=== PATIENT | male | born 1950 | race Caucasian/White ===

== ENCOUNTER 2023-01-29 21:19 | Emergency (ER) | payer MEDICARE, SELFPAY ==
[2023-01-29 21:30] VITALS: BP 158/83; PULSE 78; RESP 14; TEMP 36.6; O2SAT 97; BMI 33.2
--- NOTE | 2023-01-29 21:55 | ED_ITS ---
HPI - Extremity Injury (Lower) General Chief Complaint: Extremity Injury, Lower Stated Complaint: R leg swelling Time Seen by Provider: 01/29/23 21:43 Source: patient Mode of arrival: Ambulatory History of Present Illness HPI Narrative: 72-year-old nonsmoker with noncontributory medical history presents with his for evaluation of swelling of his right lower extremity. He states he had a ground level fall a few days ago when which he fell forward onto his right knee and developed a rather impressive hematoma below his knee which has since resolved. In the aftermath he is developed swelling of his right lower extremity with some discoloration adjacent to his lateral ankle. He denies any hip, knee or ankle pain. 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 He denies any chest pain or shortness of breath. He has no systemic complaints such as fever, chills nor nausea or vomiting. He is here for evaluation of possible DVT Related Data Allergies Allergy/AdvReac Type Severity Reaction Status Date / Time Sulfa (Sulfonamide Allergy Rash Verified 01/29/23 21:30 Antibiotics) Review of Systems Review of Systems Narrative: GENERAL: Denies chills, fatigue, malaise, fever, sweats. HEENT: Denies sinus pain, ear pain, sore throat, difficulty swallowing, dizziness. RESPIRATORY: Denies dyspnea, cough, wheezing, hemoptysis, sputum. CARDIOVASCULAR: See HPI GASTROINTESTINAL: Denies nausea, vomiting, abdominal pain, diarrhea, constipation, melena. : Denies dysuria, frequency, incontinence, hematuria, urinary retention. MUSCULOSKELETAL: See HPI SKIN: Denies rash, skin lesions, or other NEUROLOGIC: Denies weakness, headache, numbness, change in speech, confusion, seizures, incoordination. PSYCHIATRIC: No concerning psychosocial issues. 12 point review of systems is negative except for those stated above Patient History Social History Smoking Status: Never smoker Smoking Status: Never smoker alcohol intake frequency: 0-2 drinks per day Substance Use Type: does not use Exam Narrative Exam Narrative: GEN: AOx3 and in mild distress EYES: Pupils are equal, round, and reactive to light and accommodation. Extraoccular muscles are intact bilaterally. There is no subconjunctival hemorrhage or exudate. CHEST: Lungs are clear to auscultation bilaterally and free of wheezes, rales, or rhonchi. Heart rate is regular rhythm, there are no murmurs, clicks, rubs, or gallops. There is no chest wall tenderness. ABD: Abdomen is soft and nontender. There is no guarding or rebound. Bowel sounds are normal in all 4 quadrants. There is no mass or organomegaly. EXT: Right lower extremity edematous [id number] with dark purple ecchymosis adjacent inferior to lateral malleolus. Patient has full range of motion at the knee with no ligamentous instability or pain on the joint line. No pain overlying patella. There is swelling of his calf but no pain with squeeze or passive dorsiflexion of the ankle. No pain on palpation of lateral or medial malleolus, no ligamentous instability, closed, isolated and neurovascularly intact.. SKIN: Warm, pink, and dry. No erythema or rash Initial Vital Signs Initial Vital Signs: Vital Signs Temperature 97.8 F 01/29/23 21:30 Pulse Rate 78 01/29/23 21:30 Respiratory Rate 14 01/29/23 21:30 Blood Pressure 158/83 H 01/29/23 21:30 Pulse Oximetry 97 01/29/23 21:30 Oxygen Delivery Method Room Air 01/29/23 21:30 Course Vital Signs Vital signs: Vital Signs - 8 hr 01/29/23 21:30 Temperature 97.8 F Pulse Rate 78 Respiratory Rate 14 Blood Pressure 158/83 H Pulse Oximetry 97 Oxygen Delivery Method Room Air MDM - Extremity Injury (Lower) Imaging Data US - DVT: Radiologist's Impression: No DVT MDM Narrative Medical decision making narrative: [72] year old patient presents with swelling of right calf after injury Multiple etiologies for patient's symptoms considered including, but not limited to: Hematoma from prior injury, DVT, cellulitis versus other] Prior Charts reviewed in our EMR Primary Historian: patient Imaging reviewed: Ultrasound demonstrates no DVT Patient with fall a few days ago and subsequent swelling of his lower extremity. Though DVTs considered as thought unlikely given ultrasound findings. Most likely he has dependent ecchymosis from the hematoma on his knee. We did discuss the potential of performing further imaging in terms of x-rays but patient has no bony tenderness and a nonantalgic gait Findings and discharge diagnosis discussed with patient/family followed by verbalization of understanding Return precautions discussed with patient/family whom verbalize understanding of diagnosis and plan Discharge Plan Departure Patient Disposition: Home Clinical Impression: Hematoma of right lower leg Instructions: DI for Hematoma (Bruise) Activity Restrictions/Additional Instructions: *You have been diagnosed with [right lower extremity swelling and discoloration due to hematoma. As we discussed your history and physical exam are reassuring and there is no evidence of blood clot on the ultrasound] *What to do: *Please continue to take your regular medications as directed. *Please follow up with your primary care provider in 2-3 days, call for an appointment. Let them know you were seen in the Emergency Department and that we ask that you be seen in follow up. We will electronically transmit a record of today's note if your PCP is in our system * please elevate your right lower extremity as much as possible to help with swelling, additionally, as we discussed compression stockings or Elfego wrap can be helpful *If you do not have a primary care provider please contact the [facility] Resource line at [phone]. They will ask some questions about your medical history and help get you set up with a doctor in the community. *Return to Emergency Department if you should have any new, worsening or concerning symptoms, such as [fever greater than 101 F, shaking chills, worsening pain, persistent vomiting or other bothersome symptoms] Referrals: Alexey Hurt MD [Primary Care Provider] - Stand Alone Forms: Patient Portal/API
--- NOTE | 2023-01-29 22:01 | DI.US.S_ITS ---
PROCEDURE: US PERIPH VENOUS LOW EXTREM RT INDICATIONS: pain and swelling after injury TECHNIQUE: Real-time imaging, as well as color and pulse Doppler interrogation, were performed of the lower extremity deep veins from the inguinal ligament to the popliteal fossa. COMPARISON: None. FINDINGS: The common femoral, femoral and popliteal veins are normally compressible, and free of intraluminal thrombus. Color and pulse Doppler demonstrate normal phasic intraluminal flow. There is normal augmentation response to distal compression maneuver. IMPRESSION: 1. No evidence of deep venous thrombosis in the right lower extremity. Dictated by: Gabriel Roa M.D. on 01/30/2023 at 0:19 Approved by: Gabriel Roa M.D. on 01/30/2023 at 0:19
[2023-01-29 22:12] VITALS: PULSE 73; O2SAT 95
[2023-01-29 22:18] VITALS: BP 164/83; PULSE 75; O2SAT 94
[2023-01-29 22:30] VITALS: BP 152/78; PULSE 70; O2SAT 93
[2023-01-29 23:13] VITALS: PULSE 74; O2SAT 96
[2023-01-29 23:14] VITALS: BP 160/82; PULSE 73; O2SAT 94
== END 2023-01-29 23:20 | disposition home or self-care (01) ==
PROVIDERS: Emergency Provider Emergency Medicine; PCP Internal Medicine
DX: S80.11XA Contusion of right lower leg, initial encounter (principal); W18.30XA Fall on same level, unspecified, initial encounter
CPT/HCPCS: 93971; 99283

== ENCOUNTER → 2023-05-13 08:54 | Outpatient (CLI) | payer MEDICARE, SELFPAY ==
--- NOTE | 2023-05-13 08:56 | DI.MRI.S_ITS ---
PROCEDURE: MR FOOT RT WO CON INDICATIONS: Pain in right foot right ankle and foot TECHNIQUE: Noncontrast sagittal T1 spin echo and T2 fast spin echo with fat saturation, long-axis T1 spin echo and T2 fast spin echo with fat saturation, short-axis T1 spin echo and T2 fast spin echo with fat saturation through the forefoot. COMPARISON: None. FINDINGS: Image quality: Excellent. Bones and joints: There is significant marrow edema involving 2nd metatarsal shaft with subtle linear hypointense signal traversing 2nd metatarsal base without cortical disruption concerning for acute to subacute incomplete stress fracture in this area. Moderate osteoarthritic changes are noted throughout midfoot and forefoot joints most notably involving 2nd through 4th TMT joints and 1st MTP joint with significant joint space narrowing, subchondral sclerosis and dorsal marginal osteophyte formation. Nonspecific subcortical cystic changes also noted. No suspicious bony lesion. Soft tissues: There is mild midfoot and forefoot soft tissue swelling and edema. No discrete drainable fluid collection. Mild edema within plantar foot muscles suggestive of muscle strain. No intramuscular fluid collection. Extensor and flexor tendons are grossly intact. Sagittal views shows no gross plantar plate tear. IMPRESSION: 1. Moderate midfoot and forefoot joint osteoarthritis most notably involving 2nd through 4th TMT joints and 1st MTP joint. 2. Finding is concerning for subtle incomplete stress fracture involving 4th metatarsal base. No other fracture or dislocation is seen. 3. Mild midfoot and forefoot soft tissue swelling and edema. Suggestion of muscle strain involving plantar foot muscles. No extensor or flexor tendon rupture. Principal Lisfranc ligament is intact. No gross plantar plate tear. Dictated by: Ti London M.D. on 05/13/2023 at 16:35 Approved by: Ti London M.D. on 05/13/2023 at 16:39
--- NOTE | 2023-05-13 08:56 | DI.MRI.S_ITS ---
PROCEDURE: MR ANKLE RT WO CON INDICATIONS: Pain in right foot right ankle and foot TECHNIQUE: Noncontrast sagittal T1 spin echo and T2 fast spin echo with fat saturation, axial proton density fast spin echo and T2 fast spin echo with fat saturation, coronal T1 spin echo and T2 fast spin echo with fat saturation through the ankle/hindfoot. COMPARISON: None. FINDINGS: Image quality: Excellent. Bones and joints: Moderate midfoot and hindfoot joint osteoarthritic changes are noted most notably involving 2nd through 4th TMT joints with joint space narrowing, subchondral sclerosis and edema and marginal osteophyte formation. No acute fracture or dislocation. No gross osteochondral injuries of talar dome. Small tibiotalar and subtalar joint effusion is seen, no gross loose bodies. Small plantar and dorsal calcaneal enthesophytes are noted. Medial structures: The posterior tibialis is thickened with small amount of fluid distending tendon sheath at the level of distal talus and talonavicular joint. flexor digitorum longus, and flexor hallucis longus tendons are intact. The posterior tibial neurovascular bundle appears normal within the tarsal tunnel, without extrinsic mass effect. The deltoid ligament and spring ligament are intact. Lateral structures: The anterior talofibular, calcaneofibular, and posterior talofibular ligaments appear intact. More superiorly, the anterior and posterior tibiofibular ligaments appear intact, as is the intermalleolar ligament. The tibiofibular syndesmosis is normal in width at 2 mm or less. The peroneus brevis tendon is intact. The peroneus longus tendon is thickened at the level of lateral malleolus tip extending to the level of cuboid with subtle intrasubstance T2 hyperintense signal. Adjacent bony peroneal tubercle and retrotrochlear prominence are normal in size. The sinus tarsi demonstrates normal fatty signal, without edema, fibrosis, or cyst formation. Visualized sinus tarsi components (cervical ligament, interosseous talocalcaneal ligament, roots of the inferior extensor retinaculum) appear normal. The calcaneonavicular and calcaneocuboid components of the bifurcate ligament appear intact. The dorsal calcaneocuboid ligament appears intact. Anterior structures: The tibialis anterior, extensor hallucis longus, and extensor digitorum longus tendons appear intact. The dorsal talonavicular ligament appears intact. Posterior and plantar structures: There is thickening involving distal 6.8 cm segment of Achilles tendon. No Achilles tendon rupture. Markedly thickened plantar fascia at its insertion on plantar calcaneus is seen with surrounding edema and intrasubstance T2 hyperintense signal. No abductor digiti quinti muscle atrophy to suggest Hsieh neuropathy. IMPRESSION: 1. Moderate midfoot and hindfoot joint osteoarthritis. No fracture or dislocation. No evidence of osteochondral injuries of talar dome. Small joint effusion, no loose bodies. 2. Low-grade tenosynovitis involving posterior tibialis as above. 3. Low to moderate grade tendinosis and intrasubstance partial-thickness tear involving peroneus longus tendon as above. 4. Medial and lateral ankle ligaments are intact. 5. Mildly thickened distal Achilles tendon suggestive of tendinosis. No Achilles tendon rupture. 6. Thickened plantar fascia at its calcaneal insertion suggestive of moderate grade plantar fasciitis. Dictated by: Ti London M.D. on 05/13/2023 at 16:39 Approved by: Ti London M.D. on 05/13/2023 at 16:48
== END ==
PROVIDERS: PCP Internal Medicine; Referring Provider Podiatrist; Visit Provider Podiatrist
DX: M19.071 Primary osteoarthritis, right ankle and foot (principal); M79.671 Pain in right foot; M79.89 Other specified soft tissue disorders
CPT/HCPCS: 73718; 73721

== ENCOUNTER → 2023-10-08 16:39 | Outpatient (CLI) | payer MEDICARE, SELFPAY ==
--- NOTE | 2023-10-08 | DI.MRI.S_ITS ---
PROCEDURE: MR LUMBAR SPINE WO CON INDICATIONS: Radiculopathy, lumbar region TECHNIQUE: Noncontrast sagittal T1 spin echo and T2 fast echo, sagittal STIR, and T2 fast spin echo through the lumbar spine. In cases with scoliosis, additional coronal T2 fast spin echo may be performed. COMPARISON: [facility] [place], CR, XR LUMBAR SPINE 2 OR 3 VIEWS, 10/04/2023, 10:45. FINDINGS: Image quality: Excellent. Alignment and Curvature: Convex right thoracolumbar scoliosis present. Bone Marrow: Chronic degenerative endplate changes. No acute compression fractures. Spinal Cord: Conus medullaris terminates at the L1 level. Visualized cord demonstrates normal signal and size. Paraspinous Soft Tissues: Evidence of prior L4-5 central laminotomy with associated granulation tissue. No instrumentation. T12-L1: Normal appearance. L1-L2: Disc space narrowing with circumferential disc bulge and hypertrophic facet joints results in mild central stenosis. Moderate bilateral foraminal stenosis greater on the right. L2-L3: Disc space narrowing and circumferential disc bulge combines with dorsal epidural fat result in moderate central stenosis. Severe left and mild right foraminal stenosis L3-L4: Disc space narrowing and circumferential disc bulge with hypertrophic facet joints and ligamentum flavum laxity results in moderate central stenosis. Moderate bilateral foraminal stenosis greater on the left. L4-L5: Disc space narrowing with hypertrophic facet joints and disc bulge results in moderate central stenosis. Severe right and left foraminal stenosis. L5-S1: Disc space narrowing and circumferential disc bulge with right hypertrophic facet joint. No central stenosis. Severe right and left foraminal stenosis IMPRESSION: Multilevel degenerative disc disease and arthropathy results in varying degrees of central and foraminal stenosis including moderate central stenosis L2-3, L3-4 and L4-5 with severe central stenosis L2-3 L4-5 and L5-S1. Central L4-5 laminotomy without instrumentation Approved by: Bernabe Gonzáles M.D. on 10/09/2023 at 8:39
== END ==
PROVIDERS: PCP Internal Medicine; Referring Provider Physical Medicine & Rehabilitation; Visit Provider Physical Medicine & Rehabilitation
DX: M51.16 Intervertebral disc disorders with radiculopathy, lumbar region (principal); M51.17 Intervertebral disc disorders with radiculopathy, lumbosacral region; M47.26 Other spondylosis with radiculopathy, lumbar region; M47.27 Other spondylosis with radiculopathy, lumbosacral region; M48.061 Spinal stenosis, lumbar region without neurogenic claudication; M48.07 Spinal stenosis, lumbosacral region
CPT/HCPCS: 72148

== ENCOUNTER → 2023-11-05 19:05 | Outpatient (CLI) | payer MEDICARE, SELFPAY ==
--- NOTE | 2023-11-05 | DI.MRI.S_ITS ---
PROCEDURE: MR CERVICAL SPINE WO CON INDICATIONS: other spondylosis with myelopathy, cervical region TECHNIQUE: Noncontrast sagittal T1 spin echo and T2 fast spin echo, sagittal STIR, foraminal oblique sagittal T2 fast spin echo, and axial gradient echo or T2 fast spin echo through the cervical spine. COMPARISON: None. FINDINGS: Image quality: Excellent. Alignment and Curvature: Anterior fusion is present at C3-4 and C4-5. There is trace retrolisthesis of C3 on C4, trace anterolisthesis of C4 on C5 as well as trace retrolisthesis of C6 on C7. Bone Marrow: Marrow demonstrates normal overall signal. Spinal Cord: Visualized spinal cord has normal size and signal. No cerebellar tonsillar herniation. Paraspinous Soft Tissues: No paravertebral masses. Prevertebral soft tissues are normal in thickness. C2-C3: Mild disc bulge with effacement of the anterior thecal sac. Moderate to severe right foraminal narrowing with uncovertebral hypertrophy. C3-C4: Mild disc bulge with moderate to severe spinal stenosis. Severe bilateral foraminal narrowing with uncovertebral hypertrophy. C4-C5: Mild disc bulge with moderate spinal stenosis. [id number] bilateral foraminal narrowing with uncovertebral hypertrophy. C5-C6: Mild disc bulge with mild spinal stenosis. Moderate bilateral foraminal narrowing with uncovertebral hypertrophy. C6-C7: Mild disc bulge with moderate spinal stenosis. Severe left and moderate to severe right foraminal narrowing with uncovertebral hypertrophy. C7-T1: Mild disc bulge without spinal stenosis. Moderate to severe right and moderate left foraminal narrowing with uncovertebral hypertrophy. IMPRESSION: Anterior fusion at C3-4, C4-5. Multilevel foraminal narrowing most severe at C3-4,C4-5, C6-7 secondary to disc bulge. Multilevel moderate to severe foraminal narrowing most prominent at C3-4 and C6-7 secondary to uncovertebral arthropathy. Dictated by: Cynthia Bacon M.D. on 11/08/2023 at 14:33 Approved by: Cynthia Bacon M.D. on 11/08/2023 at 14:49
== END ==
PROVIDERS: PCP Internal Medicine; Referring Provider Orthopaedic Surgery; Visit Provider Orthopaedic Surgery
DX: M47.12 Other spondylosis with myelopathy, cervical region (principal); M50.01 Cervical disc disorder with myelopathy, high cervical region; M48.02 Spinal stenosis, cervical region; Z98.1 Arthrodesis status
CPT/HCPCS: 72141

== ENCOUNTER 2024-04-25 15:50 | Emergency (ER) | payer MEDICARE, SELFPAY ==
[2024-04-25 15:59] VITALS: BP 155/73; PULSE 66; RESP 16; TEMP 36.1; O2SAT 97; BMI 33.9
[2024-04-25 16:51] LABS: Add Manual Diff / Slide Review NO; Basophils Absolute Auto 0 /uL (0-100); Basophils Percent Auto 0.5 % (0-2); Eosinophils Absolute Auto 200 /uL (0-450); Eosinophils Percent Auto 2.9 % (2-4); Hematocrit 41.4 % (41-53); Hemoglobin 14.3 g/dL (13.5-17.5); Lymphocytes Absolute Auto 1100 /uL (1100-4500); Lymphocytes Percent Auto 14.6 % (25-40); Mean Corpuscular HGB Conc 34.6 % (30-36); Mean Corpuscular Hemoglobin 32.9 PG (26-34); Mean Corpuscular Volume 95.2 fL (80-100); Monocytes Absolute Auto 500 /uL (0-900); Monocytes Percent Auto 6.2 % (3-14); Neutrophils Absolute Auto 5500 /uL (1500-7000); Neutrophils Percent Auto 75.8 % (50-75); Platelet Count 161 X10^3/uL (150-400); Red Blood Cell Count 4.35 X10^6/uL (4.5-5.9); Red Cell Distribution Width 13.3 % (11.6-14.8); White Blood Cell Count 7.3 X10^3/uL (4.5-11.0)
[2024-04-25 16:56] VITALS: BP 150/69; PULSE 69; O2SAT 98
[2024-04-25 17:00] VITALS: BP 150/80; PULSE 65; O2SAT 97
[2024-04-25] MEDS: PANTOPRAZOLE 40 MG VIAL 80 MG IV (17:00)
[2024-04-25 17:01] LABS: INR 1.1 (0.9-1.3); Prothrombin Time 12.1 SECONDS (9.4-12.5)
[2024-04-25 17:04] LABS: PTT Partial Thromboplastin Tim 37 SECONDS (25.1-36.5)
[2024-04-25 17:13] LABS: Alanine Aminotransferase 27 IU/L (<50); Albumin 3.8 g/dL (3.5-5.0); Albumin Globulin Ratio 1.9 (1.0-2.8); Alkaline Phosphatase 70 U/L (38-126); Aspartate Aminotransferase 38 IU/L (17-59); BUN Creatinine Ratio 29.3 (6-22); Bilirubin Total 0.8 mg/dL (0.2-1.3); Blood Urea Nitrogen 22 mg/dL (9-20); Calcium 8.4 mg/dL (8.4-10.2); Carbon Dioxide 30 mmol/L (22-32); Chloride 109 mmol/L (98-107); Estimated Glomerular Filt Rate > 60 mL/min (>60); Glucose 92 mg/dL (80-110); HEMOLYSIS < 15 (0-50); Potassium 4.2 mmol/L (3.4-5.1); Sodium 141 mmol/L (137-145); Total Protein 5.8 g/dL (6.3-8.2)
--- NOTE | 2024-04-25 17:23 | ED_ITS ---
HPI - GI Bleed General Chief complaint: GI Bleed Stated complaint: bloody stool Time Seen by Provider: 04/25/24 16:48 Source: patient Mode of arrival: Ambulatory History of Present Illness HPI Narrative: Patient is a 73-year-old male. Not on anticoagulation who is here for evaluation of an episode of bright red blood per rectum. He stated that it occurred earlier today when he had a bowel movement. He had a similar episode a couple weeks ago that resolved on its own. It was not painful to go to the bathroom. No constipation. No diarrhea. No urinary symptoms. No abdominal pain. He had a colonoscopy 4 years ago. He was told to come back in 1 year. No fevers. No chest pain or shortness of breath. No lightheadedness. Related Data Allergies Allergy/AdvReac Type Severity Reaction Status Date / Time Sulfa (Sulfonamide Allergy Rash Verified 04/25/24 16:01 Antibiotics) Review of Systems Review of Systems Narrative: See HPI Patient History Social History Smoking Status: Never smoker Smoking Status: Never smoker alcohol intake frequency: 0-2 drinks per day Substance Use Type: does not use Exam Initial Vital Signs Initial Vital Signs: Vital Signs Temperature 96.9 F L 04/25/24 15:59 Pulse Rate 66 04/25/24 15:59 Respiratory Rate 16 04/25/24 15:59 Blood Pressure 155/73 H 04/25/24 15:59 Pulse Oximetry 97 04/25/24 15:59 Oxygen Delivery Method Room Air 04/25/24 15:59 Const General: cooperative, comfortable and No ill appearing [facility] Head: normal to inspection and normocephalic Resp Effort & Inspection: normal respiratory effort Cardio Rate: regular rate GI Inspection: normal to inspection and non-distended Rectal Exam: heme positive stool, hemorrhoids (Internal hemorrhoid), No lesions and No mass Skin General: no rashes or lesions noted Neuro General: patient alert and moves all extremities Course Orders Ordered: ED Orders 04/25/24 16:02 EKG-12 Lead Stat 04/25/24 16:30 Complete Blood Count AUTO DIFF Stat Comprehensive Metabolic Panel Stat PTT Partial Thromboplastin Cesar Stat Prothrombin Time INR Stat Type and Screen Stat Ondansetron HCl (Ondansetron 4 Mg/2 Ml Inj) 4 mg IV NOW PRN PRN Reason: Nausea And Vomiting Ondansetron HCl (Ondansetron 4 Mg Odt) 4 mg SL NOW PRN PRN Reason: Nausea And Vomiting Discontinued Medications Pantoprazole Sodium (Pantoprazole 40 Mg Vial) 80 mg IV NOW ONE Stop: 04/25/24 16:03 Last Admin: 04/25/24 17:00 Dose: 80 mg Documented By: [facility] Vital Signs Vital signs: Vital Signs - 8 hr 04/25/24 15:59 Temperature 96.9 F L Pulse Rate 66 Respiratory Rate 16 Blood Pressure 155/73 H Pulse Oximetry 97 Oxygen Delivery Method Room Air MDM - GI Bleed Lab Data Attestation: I reviewed the patient's lab results. 04/25/24 16:30 04/25/24 16:30 Labs: Lab Results 04/25/24 Range/Units 16:30 WBC 7.3 (4.5-11.0) X10^3/uL RBC 4.35 L (4.5-5.9) X10^6/uL Hgb 14.3 (13.5-17.5) g/dL Hct 41.4 (41-53) % MCV 95.2 (80-100) fL MCH 32.9 (26-34) PG MCHC 34.6 (30-36) % RDW 13.3 (11.6-14.8) % Plt Count 161 (150-400) X10^3/uL Neut % (Auto) 75.8 H (50-75) % Lymph % (Auto) 14.6 L (25-40) % Kingfisher % (Auto) 6.2 (3-14) % Eos % (Auto) 2.9 (2-4) % Baso % (Auto) 0.5 (0-2) % Neut # (Auto) 5500 (1151-1548) /uL Lymph # (Auto) 1100 (3962-1025) /uL King[place]isher # (Auto) 500 (0-900) /uL Eos # (Auto) 200 (0-450) /uL Baso # (Auto) 0 (0-100) /uL PT 12.1 (9.4-12.5) SECONDS INR 1.1 (0.9-1.3) APTT 37 H (25.1-36.5) SECONDS Sodium 141 (137-145) mmol/L Potassium 4.2 (3.4-5.1) mmol/L Chloride 109 H (98-107) mmol/L Carbon Dioxide 30 (22-32) mmol/L BUN 22 H (9-20) mg/dL Creatinine 0.75 (0.66-1.25) mg/dL Estimated GFR > 60 (>60) mL/min BUN/Creatinine Ratio 29.3 H (6-22) Glucose 92 (80-110) mg/dL Calcium 8.4 (8.4-10.2) mg/dL Total Bilirubin 0.8 (0.2-1.3) mg/dL AST 38 (17-59) IU/L ALT 27 (<50) IU/L Alkaline Phosphatase 70 (38-126) U/L Total Protein 5.8 L (6.3-8.2) g/dL Albumin 3.8 (3.5-5.0) g/dL Globulin 2.0 (1.7-4.1) g/dL Albumin/Globulin Ratio 1.9 (1.0-2.8) Blood Type A Positive Antibody Screen Negative MDM Narrative Medical decision making narrative: Vital signs and lab work are very reassuring. He does have an internal hemorrhoid on his exam today. He has not on anticoagulation. No indication for blood transfusion. No indication for admission to the hospital. Will discharge patient home with instructions to follow up with General surgery as he should have another colonoscopy. We discussed strict return precautions and follow-up instructions. He expressed understanding and agreement. Discharge Plan Departure Patient Disposition: Home Clinical Impression: Internal hemorrhoid, BRBPR (bright red blood per rectum) Instructions: DI for Hemorrhoids Activity Restrictions/Additional Instructions: Continue to take all of your medications as directed. Recommend that you contact the general surgery department at the number provided below for a follow-up. Return to the emergency department for new or worsening symptoms. Referrals: Baldev Najera MD [Physician] - Alexey Hurt MD [Primary Care Provider] - Stand Alone Forms: Patient Portal/API
== END 2024-04-25 17:35 | disposition home or self-care (01) ==
PROVIDERS: Emergency Provider Emergency Medicine; PCP Internal Medicine
DX: K64.8 Other hemorrhoids (principal); K62.5 Hemorrhage of anus and rectum
CPT/HCPCS: 36415; 80053; 85025; 85610; 85730; 86850; 86900; 86901; 96374; 99284; C9113

== ENCOUNTER → 2024-10-31 18:21 | Outpatient (CLI) | payer MEDICARE, SELFPAY ==
--- NOTE | 2024-10-31 | DI.MRI.S_ITS ---
PROCEDURE: MR LUMBAR SPINE WO CON INDICATIONS: radiculopathy TECHNIQUE: Noncontrast sagittal T1 spin echo and T2 fast echo, sagittal STIR, and T2 fast spin echo through the lumbar spine. In cases with scoliosis, additional coronal T2 fast spin echo may be performed. COMPARISON: [facility], MR, MR THORACIC SPINE WO CON, 10/31/2024, 18:33. [facility], MR, MR CERVICAL SPINE WO CON, 10/31/2024, 18:33. [facility], MR, MR LUMBAR SPINE WO CON, 10/08/2023, 17:31. FINDINGS: Image quality: There is artifact associated with the metallic hardware. Alignment and Curvature: There is minimal to mild retrolisthesis seen at L1-L2 and L2-L3. Mild dextroconvex scoliotic curvature is seen. Bone Marrow: Marrow is of normal overall signal. No acute vertebral body compression fractures. Spinal Cord: Conus medullaris terminates at the L1 level. Visualized cord demonstrates normal signal and size. Paraspinous Soft Tissues: No paravertebral masses. T12-L1: Normal appearance. L1-L2: The disc height is well-preserved. Loss of disc signal is seen at this level. Moderate disc bulge is seen, which is eccentric to the right. Moderate facet joint hypertrophy is seen. There is at least moderate right-sided and moderate left-sided neural foraminal narrowing. At least moderate central canal narrowing is seen. No significant change from the prior images. L2-L3: Moderate loss of disc height is seen. Loss of disc signal is seen. At least moderate disc bulge is seen, which is eccentric to the left. There is a superimposed central disc protrusion. Moderate facet joint hypertrophy is seen. There is moderate to severe left-sided neural foraminal narrowing, with a degree of compression upon the exiting left L2 nerve root. There is moderate left-sided neural foraminal narrowing. There is at least moderate central canal narrowing seen at this level. When comparison is made with the prior images, these findings are similar. L3-L4: Moderate to severe loss of disc height and disc signal can be seen. Reactive marrow endplate changes are seen, which are hyperintense on T1-weighted and T2-weighted imaging and most consistent with fatty metaplasia (Modic type II changes). At least moderate disc bulge is seen, with a central disc protrusion. There is moderate to severe bilateral neural foraminal narrowing seen, with an associated degree of compression seen upon the exiting nerve roots. Moderate to severe central canal narrowing is seen, as on series 8, image 6. When comparison is made with the prior images, these findings are similar. L4-L5: Postoperative changes are seen at this level, with bilateral pedicle screws and vertical fixation rods. There is a disc spacer seen at this level. There is at least moderate disc bulge is seen, which is eccentric to the right. There is a central disc osteophyte protrusion seen. Moderate facet joint hypertrophy is seen. There is at least moderate bilateral neural foraminal narrowing seen. At least moderate central canal narrowing is seen, as on series 8, image 10. The degree of right-sided neural foraminal narrowing is improved compared to the prior. L5-S1: Ljzq-jh-yaltnhlt loss of disc height and disc signal can be seen. Moderate disc bulge is seen, which is eccentric to the right. Moderate facet joint hypertrophy is seen. There is at least moderate bilateral neural foraminal narrowing. Moderate central canal narrowing is seen. When comparison is made with the prior images, these findings are similar. IMPRESSION: Since the prior MRI, there has been placement of postoperative fixation hardware at L4-L5, with improvement in the degree of right-sided neural foraminal narrowing at this level. Multiple levels of significant degenerative change can be seen elsewhere, which are similar to the prior images. Dictated by: Juan Alberto Jerez M.D. on 11/01/2024 at 9:25 Approved by: Juan Alberto Jerez M.D. on 11/01/2024 at 9:32
--- NOTE | 2024-10-31 | DI.MRI.S_ITS ---
PROCEDURE: MR THORACIC SPINE WO CON INDICATIONS: stenosis TECHNIQUE: Noncontrast sagittal T1 spine echo and T2 fast spin echo, sagittal STIR, and T2 fast spin echo through the thoracic spine. COMPARISON: [facility], MR, MR LUMBAR SPINE WO CON, 10/31/2024, 18:33. [facility], MR, MR CERVICAL SPINE WO CON, 10/31/2024, 18:33. FINDINGS: Image quality: Excellent. Alignment and Curvature: Accentuated thoracic kyphosis is seen. No focal AP alignment abnormality is seen. Bone Marrow: Marrow is of normal overall signal. No acute vertebral body compression fractures. Spinal Cord: Visualized spinal cord is normal in size and signal. Paraspinous Soft Tissues: No paravertebral masses. Miscellaneous: Lower cervical spine degenerative change is partially seen. At the T2-T3 level, there is a mild central disc protrusion, with mild central canal narrowing and mild mass effect upon the ventral spinal cord. Moderate bilateral neural foraminal narrowing is seen at this level. At the T3-T4 level, there are central disc protrusions seen. Mild to moderate facet hypertrophy can be seen. There is szzb-ue-ojfdlwzz central canal narrowing. There is at least moderate right-sided and moderate left-sided neural foraminal narrowing. At the T7-T8 level, there is a mild central disc osteophyte protrusion, with minimal central canal narrowing and minimal to mild mass effect upon the ventral spinal cord. Mild bilateral neural foraminal narrowing is seen. At the T10-T11 level, there is a central/right disc protrusion, with mild to moderate central canal narrowing and mild mass effect upon the ventral spinal cord. Moderate facet joint hypertrophy is seen. Moderate bilateral neural foraminal narrowing is seen. At the T11-T12 level, there is a central disc osteophyte protrusion, with at least moderate facet hypertrophy. There is at least moderate central canal narrowing, with mild to moderate mass effect upon the spinal cord itself. Moderate bilateral neural foraminal narrowing is seen. Milder degenerative changes are seen elsewhere. IMPRESSION: Multiple levels thoracic spine degenerative change can be seen, which are overall worst inferiorly. Dictated by: Juan Alberto Jerez M.D. on 11/01/2024 at 9:21 Approved by: Juan Alberto Jerez M.D. on 11/01/2024 at 9:25
--- NOTE | 2024-10-31 | DI.MRI.S_ITS ---
PROCEDURE: MR CERVICAL SPINE WO CON INDICATIONS: stenosis TECHNIQUE: Noncontrast sagittal T1 spin echo and T2 fast spin echo, sagittal STIR, foraminal oblique sagittal T2 fast spin echo, and axial gradient echo or T2 fast spin echo through the cervical spine. COMPARISON: [facility], MR, MR LUMBAR SPINE WO CON, 10/31/2024, 18:33. [facility], MR, MR THORACIC SPINE WO CON, 10/31/2024, 18:33. [facility], MR, MR CERVICAL SPINE WO CON, 11/05/2023, 19:19. FINDINGS: Image quality: There is artifact associated with the metallic hardware. This examination is limited by involuntary motion artifact. Alignment and Curvature: There is no overall straightening of the normal cervical lordosis. Minimal retrolisthesis can be seen at the C6-C7 level. Bone Marrow: Marrow demonstrates normal overall signal. Spinal Cord: Visualized spinal cord has normal size and signal. No cerebellar tonsillar herniation. Paraspinous Soft Tissues: No paravertebral masses. Prevertebral soft tissues are normal in thickness. C2-C3: The disc height and disk signal are relatively well-preserved. Mild disc osteophyte complex is seen, which is eccentric to the right. There is at least moderate right-sided and zico-ko-cngbjhww left-sided facet hypertrophy. There is moderate to severe right-sided and mild left-sided neural foraminal narrowing. Mild central canal narrowing is seen. No significant change from the prior. C3-C4: Postoperative change is seen at this level, with an anteriorly placed fixation device. Moderate generalized disc osteophyte complex is seen. There is at least moderate facet hypertrophy. There is at least moderate bilateral neural foraminal narrowing seen. At least moderate central canal narrowing is seen, with associated ventral cord flattening, as on series 6, image 20. No significant change from the prior. C4-C5: An anteriorly placed fixation device is seen at this level. Moderate generalized disc osteophyte complex is seen. There is a mild central disc osteophyte protrusion. At least moderate facet hypertrophy can be seen. There is at least moderate bilateral neural foraminal narrowing. Mild to moderate central canal narrowing is seen, with mild mass effect upon the ventral spinal cord. When comparison is made with the prior images, these findings are similar. C5-C6: At least moderate loss of disc height and disc signal can be seen. Moderate generalized disc osteophyte complex is seen. Moderate facet joint hypertrophy is seen. There is at least moderate bilateral neural foraminal narrowing. Moderate central canal narrowing is seen. When comparison is made with the prior images, these findings are similar. C6-C7: Moderate loss of disc height is seen. Loss of disc signal is seen. At least moderate disc osteophyte complex is seen. There is a central/left disc osteophyte protrusion. At least moderate facet hypertrophy is seen. There is moderate to severe bilateral neural foraminal narrowing. Moderate central canal narrowing is seen. No significant change from the prior. C7-T1: Xman-xa-gklibaon loss of disc height and disc signal can be seen. Mild to moderate disc osteophyte complex is seen. There is at least moderate right-sided and moderate left-sided facet hypertrophy. There is moderate to severe right-sided and qroo-zb-vghytyqy left-sided neural foraminal narrowing. No central canal narrowing is seen. When comparison is made with the prior images, these findings are similar. IMPRESSION: Multiple levels of significant cervical spine degenerative change can be seen, which are similar to the prior MRI. Anteriorly placed fusion devices can be seen at C3-C4 and C4-C5. Dictated by: Juan Alberto Jerez M.D. on 11/01/2024 at 8:25 Approved by: Juan Alberto Jerez M.D. on 11/01/2024 at 8:31
== END ==
PROVIDERS: PCP Internal Medicine; Referring Provider Internal Medicine; Visit Provider Orthopaedic Surgery
DX: M48.02 Spinal stenosis, cervical region (principal); M47.812 Spondylosis without myelopathy or radiculopathy, cervical region; M51.14 Intervertebral disc disorders with radiculopathy, thoracic region; M51.16 Intervertebral disc disorders with radiculopathy, lumbar region; M51.17 Intervertebral disc disorders with radiculopathy, lumbosacral region; Z98.1 Arthrodesis status
CPT/HCPCS: 72141; 72146; 72148

== ENCOUNTER 2025-03-02 19:15 | Emergency (ER) | payer MEDICARE, SELFPAY ==
[2025-03-02 19:23] VITALS: BP 182/84; PULSE 63; RESP 17; TEMP 36.7; O2SAT 98; BMI 30.7
--- NOTE | 2025-03-02 19:51 | PC.NURSE ---
pt had a procedure done today in [facility] his catheter started leaking around the penis so they cut the bag from the tubing, upon arrival to the ED pt placed in a room and the catheter was removed, with a large clot noted in the end of the tubing.
--- NOTE | 2025-03-02 20:06 | PC.NURSE ---
discuss with Dr Lam about the situation and reinserting a catheter, waiting for a call from Dr Marshall. Spoke with pt and pt received care at [facility] from [facility] who are not non destructive testing inspector here which is why Dr Marshall was paged
--- NOTE | 2025-03-02 20:28 | ED.MALEGU ---
HPI - Male Genitourinary General Chief complaint: Urogenital-Male Stated complaint: had prostate procedure today, cath came out Time Seen by Provider: 03/02/25 20:28 Source: patient and family Mode of arrival: Wheelchair Limitations: no limitations History of Present Illness HPI Narrative: 74-year-old male presents after having a UroLift earlier today patient states they were having trouble with the catheter bag so they caught the bag off. Patient then presented to the emergency department. Nursing had removed the catheter. Patient has since urinated he had a small amount of clot but states otherwise had yellow urine. He states was not very painful. States it went pretty well. He states they were not planning to have a catheter postsurgically but he had some coughing during the procedure and they were concerned about bleeding and it was placed with the plan for it to be removed Wednesday. This was performed at [facility] with their urology team. Patient has felt a little bit warm here in the department but otherwise denies any symptoms denies any abdominal back or flank pain. He states that he also had a bowel movement because he was told to take MiraLax and some stool softeners. Related Data Allergies Allergy/AdvReac Type Severity Reaction Status Date / Time Sulfa (Sulfonamide Allergy Rash Verified 04/25/24 16:01 Antibiotics) Review of Systems Review of Systems ROS Unobtainable: All systems reviewed & are unremarkable except as noted in HPI and below Patient History Social History Smoking Status: Never smoker Smoking Status: Never smoker alcohol intake frequency: 0-2 drinks per day Exam Narrative Exam Narrative: GENERAL: Alert and oriented x three, male in mild distress HEENT: Head normocephalic, atraumatic, EOMI, pupils reactive, face symmetric, moist mucous membranes NECK: Supple, full range of motion CARDIOVASCULAR: Regular rate and rhythm without murmurs, rubs or gallops. RESPIRATORY: Breath sounds equal bilaterally, no wheezes rales or rhonchi. ABDOMEN: Soft, nontender. Nondistended Normoactive bowel sounds all 4 quadrants. No guarding or rebound, rigidity, no mass : No CVA tenderness, normal male genitalia EXTREMITIES: Normal range of motion, no clubbing or edema. Neurovascularly intact NEUROLOGICAL: Cranial nerves II through XII grossly intact. Moving all extremities SKIN: Warm, dry, no petechiae, no rashes or lesions. Initial Vital Signs Initial Vital Signs: Vital Signs Temperature 98.1 F 03/02/25 19:23 Pulse Rate 63 03/02/25 19:23 Respiratory Rate 17 03/02/25 19:23 Blood Pressure 182/84 H 03/02/25 19:23 Pulse Oximetry 98 03/02/25 19:23 Oxygen Delivery Method Room Air 03/02/25 19:23 Course Orders Ordered: Discontinued Medications Lidocaine HCl (Lidocaine 2% (Glydo) 6 Ml Gel) 6 ml TOP NOW ONE Stop: 03/02/25 19:34 Last Admin: 03/02/25 22:30 Dose: Not Given Documented By: ALVINA Vital Signs Vital signs: Vital Signs - 8 hr 03/02/25 19:23 03/02/25 20:41 Temperature 98.1 F 98 F Pulse Rate 63 Respiratory Rate 17 Blood Pressure 182/84 H Pulse Oximetry 98 Oxygen Delivery Method Room Air MDM - Male Genitourinary MDM Narrative Medical decision making narrative: Several calls out to local urologist Dr. Marshall. Patient was able to urinate here in the department. Postvoid urine is 0mL. Called [facility] to speak with their on-call urologist. Dr Jaeger is carbon sequestration plant manager but currently going into a procedure, will call back after completed. Did speak with local urology Dr. Marshall. He states he would recommend talking to the urologist at [facility] as there maybe complications from the surgery that would potentially inhibit us placing a Bledsoe catheter but he states typically in his own patient's he would feel comfortable with nursing replacing the catheter if it was a urolift. Discussed with the patient's and family the just awaiting call back from Urology at [facility] but they are currently in a procedure. They elect to leave the department. Discharge Plan Departure Patient Disposition: Left Against Medical Advice Clinical Impression: Malfunction of Bledsoe catheter Activity Restrictions/Additional Instructions: I am awaiting call back from your urology team at [facility]. They are currently in a procedure. You can return at any time for new or worsening symptoms. Referrals: Alexey Hurt MD [Primary Care Provider] - Stand Alone Forms: Patient Portal/API, Against Med. Advice (Armenian)
[2025-03-02 20:41] VITALS: TEMP 36.6
--- NOTE | 2025-03-02 22:19 | PC.NURSE ---
pt and wanting to leave, explained that we were still waiting for urology from [facility] to return call that they were still in a procedure, discussed situation with pt, explained again why we were hesitant to re-insert a catheter without speaking to his urologist, discussed time frames with pt, pt and verbalized understanding, of situation, stated they wanted to just leave and would followup up at [facility] ER. AMA form explained to pt and signed. Dr Lam informed of pt wanting to leave. Dr Lam in to speak with pt and to explain what Dr Marshall had told us when he called in case they wanted to consider that.
[2025-03-02 22:25] VITALS: BP 172/82; PULSE 62; RESP 16; O2SAT 100
== END 2025-03-02 22:26 | disposition left against medical advice (07) ==
PROVIDERS: Emergency Provider Emergency Medicine; PCP Internal Medicine
DX: T83.011A Breakdown (mechanical) of indwelling urethral catheter, initial encounter (principal)
CPT/HCPCS: 51798; 99282